=== PATIENT | female | born 1940 | race Caucasian/White ===

== ENCOUNTER 2019-04-02 10:45 | Emergency (ER) | payer MEDICARE, OTHER ==
--- NOTE | 2019-04-02 11:00 | Emergency Department Record ---
History of Present Illness - General Chief Complaint: Fall Injury Stated Complaint: FALL/R KNEE INJURY Time Seen by Provider: 04/02/19 10:50 Source: Patient, RN notes reviewed Mode of Arrival: Wheelchair - History of Present Illness Initial Comments: patient fell last night and injuried the right knee and right little finger No other injuries. She did walk on her leg and the swelling came on slowing. MD Complaint: Fall Onset/Timin -: Days(s) Fall From: Standing Associated Symptoms: Denies - Caterina Coma Scale Eye Response: (4) Open spontaneously Motor Response: (6) Obeys commands Verbal Response: (5) Oriented Caterina Total: 15 - Related Data Home Medications Medication Instructions Recorded Confirmed Last Taken Albuterol Sulfate [Proair 90 mcg IH ASDIR 04/02/19 04/02/19 Unknown Respiclick] Ascorbic Acid [Vitamin C] 500 mg PO BID 04/02/19 04/02/19 Unknown Atorvastatin Calcium 20 mg PO QHS 04/02/19 04/02/19 Unknown Cetirizine HCl 10 mg PO DAILY 04/02/19 04/02/19 Unknown Cholecalciferol (Vitamin D3) 4,000 unit PO DAILY 04/02/19 04/02/19 Unknown [Vitamin D3] Codeine/Butalbital/ASA/Caffein 1 each PO ASDIR 04/02/19 04/02/19 Unknown [Fiorinal-Cod [id number] Cap] Cyanocobalamin (Vitamin B-12) 1,000 mcg PO BID 04/02/19 04/02/19 Unknown [Vitamin B-12] Diphenhydramine HCl [Benadryl] 25 mg PO ASDIR 04/02/19 04/02/19 Unknown Fluticasone Propion/Salmeterol 1 each IH ASDIR 04/02/19 04/02/19 Unknown [Airduo Respiclick 55-14 Mcg] Losartan Potassium [Cozaar] 50 mg PO DAILY 04/02/19 04/02/19 Unknown Magnesium 250 mg PO ASDIR 04/02/19 04/02/19 Unknown Montelukast Sodium [Singulair] 10 mg PO DAILY 04/02/19 04/02/19 Unknown Vitamin E 400 unit PO DAILY 04/02/19 04/02/19 Unknown Zinc Gluconate [Zinc] 50 mg PO QHS 04/02/19 04/02/19 Unknown Previous Rx's Medication Instructions Recorded Tramadol HCl 50 mg PO Q8H #9 tab 04/02/19 Allergies Allergy/AdvReac Type Severity Reaction Status Date / Time Penicillins Allergy RASH Verified 04/02/19 10:56 povidone-iodine Allergy HIVES Verified 04/02/19 10:56 [From Betadine] soap [From Betadine] Allergy HIVES Verified 04/02/19 10:56 morphine AdvReac VOMITING Verified 04/02/19 10:56 Travel Screening - Travel/Exposure Within Last 30 Days Have you traveled within the last 30 days?: No Review of Systems Reviewed: No additional complaints except as noted below Constitutional: Reports: As per HPI. Denies: Chills, Fever, Malaise, Night sweats, Weakness, Weight change Eyes: Reports: As per HPI. Denies: Eye discharge, Eye pain, Photophobia, Vision change ENT: Reports: As per HPI. Denies: Congestion, Dental pain, Ear pain, Epistaxis, Hearing loss, Throat pain Respiratory: Reports: As per HPI. Denies: Cough, Dyspnea, Hemoptysis, Stridor, Wheezes Cardiovascular: Reports: As per HPI. Denies: Arrhythmia, Chest pain, Dyspnea on exertion, Edema, Murmurs, Orthopnea, Palpitations, Paroxysmal nocturnal dyspnea, Rheumatic Fever, Syncope Endocrine: Reports: As per HPI. Denies: Fatigue, Heat or cold intolerance, Polydipsia, Polyuria Gastrointestinal: Reports: As per HPI. Denies: Abdominal pain, Constipation, Diarrhea, Hematemesis, Hematochezia, Melena, Nausea, Vomiting Genitourinary: Reports: As per HPI. Denies: Abnormal menses, Discharge, Dyspareunia, Dysuria, Frequency, Hematuria, Incontinence, Retention, Urgency Musculoskeletal: Reports: As per HPI, Joint swelling. Denies: Arthralgia, Back pain, Gout, Myalgia, Neck pain Skin: Reports: As per HPI. Denies: Bruising, Change in color, Change in hair/nails, Lesions, Pruritus, Rash Neurological: Reports: As per HPI. Denies: Abnormal gait, Confusion, Headache, Numbness, Paresthesias, Seizure, Tingling, Tremors, Vertigo, Weakness Psychiatric: Reports: As per HPI. Denies: Anxiety, Auditory hallucinations, Depression, Homicidal thoughts, Suicidal thoughts, Visual hallucinations Hematological/Lymphatic: Reports: As per HPI. Denies: Anemia, Blood Clots, Easy bleeding, Easy bruising, Swollen glands Physical Exam - General General Appearance: Alert, Oriented x3, Cooperative, No acute distress - Head Head exam: Normal inspection - Eye Eye exam: Normal appearance, PERRL Pupils: Normal accommodation - ENT ENT exam: Normal exam, Mucous membranes moist, Normal external ear exam, Normal orophraynx, TM's normal bilaterally Ear exam: Normal external inspection. negative: External canal tenderness Nasal Exam: Normal inspection. negative: Discharge, Sinus tenderness Mouth exam: Normal external inspection, Tongue normal Teeth exam: Normal inspection. negative: Dental caries Throat exam: Normal inspection. negative: Tonsillar erythema, Tonsillar exudate - Neck Neck exam: Normal inspection, Full ROM. negative: Tenderness - Respiratory Respiratory exam: Normal lung sounds bilaterally. negative: Respiratory distress - Cardiovascular Cardiovascular Exam: Regular rate, Normal rhythm, Normal heart sounds - GI/Abdominal GI/Abdominal exam: Soft, Normal bowel sounds. negative: Tenderness - Rectal Rectal exam: Deferred - exam: Deferred - Extremities Extremities exam: Full ROM, Joint swelling, Normal capillary refill, Tenderness (right knee pain, right fifth finger pain) - Back Back exam: Reports: Normal inspection, Full ROM. Denies: Muscle spasm, Rash noted, Tenderness - Neurological Neurological exam: Alert, Normal gait, Oriented X3, Reflexes normal - Psychiatric Psychiatric exam: Normal affect, Normal mood - Skin Skin exam: Dry, Intact, Normal color, Warm Course Vital Signs 04/02/19 10:52 Pulse Rate 74 Respiratory 20 Rate Blood Pressure 194/100 Pulse Ox 94 L - Reevaluation(s) Reevaluation #1: 04/02/19 12:18 ligaments checked and they have endpoints and she was only able to flexher knee 30 degrees because of the knee effusion Reevaluation #2: discussed treatment options and and possible need for MRI but her family Dr would order that. 04/02/19 12:21 Disposition Clinical Impression: Contusion, knee Qualifiers: Encounter type: initial encounter Laterality: right Qualified Code(s): S80.01XA - Contusion of right knee, initial encounter Sprain of knee Qualifiers: Encounter type: initial encounter Involved ligament of knee: lateral collateral ligament Laterality: right Qualified Code(s): S83.421A - Sprain of lateral lisa ateral ligament of right knee, initial encounter Disposition: Home, Self-Care Condition: (1) Good Instructions: Fall Prevention for Older Adults (ED), Contusion in Adults (ED), Knee Sprain (ED) Additional Instructions: knee immobilier follow up with Primary Dr Nicole in one week tylenol or motrin for pain and if it is real bad use tramodol. ice Prescriptions: Tramadol HCl 50 mg PO Q8H #9 tab Forms: Patient Portal Access Time of Disposition: 12:24 Quality - Quality Measures Quality Measures: N/A - Blood Pressure Screening Does Patient Have Any of the Following: No, Active Dx of HTN Blood Pressure Classification: Hypertensive Reading Systolic Measurement: 194 Diastolic Measurement: 100 Screening for High Blood Pressure: Patient Exclusion, Hx of HTN [[id number]]
--- NOTE | 2019-04-02 11:25 | RADIOLOGY REPORT ---
EXAMINATION: Right Thumb, Minimum Two Views EXAM DATE: 04/02/2019 11:14 AM TECHNIQUE: PA, lateral, and oblique views INDICATION: fall fifth finger ecchymotic COMPARISON: None ENCOUNTER: Initial FINDINGS: Normal bony architecture. Arthrosis distal and proximal interphalangeal joints with joint space narro wing juxta-articular sclerosis and spurring. No acute fracture or dislocation. IMPRESSION: No acute abnormality, arthrosis. Follow-up MRI if symptoms persist Dictated by: Barak Wilson MD on 04/02/2019 11:23 AM. .
--- NOTE | 2019-04-02 11:26 | RADIOLOGY REPORT ---
EXAMINATION: Right Knee Complete, Four or More Views EXAM DATE: 04/02/2019 11:15 AM TECHNIQUE: Frontal, lateral, oblique and sunrise view INDICATION: fall COMPARISON: None ENCOUNTER: Initial FINDINGS: Normal bony architecture. Tricompartment narrowing. Medial lateral and retropatellar spurring. Chondr ocalcinosis. Small suprapatellar joint effusion. Vascular calcifications. IMPRESSION: No acute abnormality, arthrosis, small suprapatellar effusion. Follow-up MRI if symptoms persist Dictated by: Barak Wilson MD on 04/02/2019 11:24 AM. .
== END 2019-04-02 12:33 | disposition home or self-care (01) ==
LOC: ER 10:45
DX: S83.421A Sprain of lateral collateral ligament of right knee, initial encounter (principal); S80.01XA Contusion of right knee, initial encounter; M79.644 Pain in right finger(s); W18.09XA Striking against other object with subsequent fall, initial encounter; I10 Essential (primary) hypertension
CPT/HCPCS: 73140; 99284